=== PATIENT | female | born 1990 | race Caucasian/White ===

== ENCOUNTER 2019-05-16 10:48 | Emergency (ER) | payer OTHER ==
[2019-05-16 10:54] VITALS: BP 99/66; PULSE 74; TEMP 98.2; BMI 24.2
[2019-05-16] MEDS ORDERED: KETOROLAC TROMETHAMINE 60 MG/2 ML VIAL IM ONE (11:02)
[2019-05-16] MEDS ORDERED: METHOCARBAMOL 750 MG TABLET PO ONE (11:02)
[2019-05-16] MEDS ORDERED: LIDOCAINE 5% TOPICAL PATCH TP ONE (11:02)
[2019-05-16] MEDS ORDERED: KETOROLAC TROMETHAMINE 60 MG/2 ML VIAL ONE (11:05)
--- NOTE | 2019-05-16 11:09 | PDOC ---
History of Present Illness - General Chief Complaint: Back Pain Stated Complaint: BACK PAIN Time Seen by Provider: 05/16/19 10:54 History Source: Patient Exam Limitations: No Limitations Past History - Past Medical History Allergies/Adverse Reactions: Allergies Allergy/AdvReac Type Severity Reaction Status Date / Time No Known Allergies Allergy Verified 05/16/19 10:50 Home Medications: Ambulatory Orders Lidocaine 5% Patch [Lidoderm -] 1 patch TP DAILY #7 patch 05/16/19 Methocarbamol [Robaxin -] 1,500 mg PO Q6H PRN #24 tablet 05/16/19 Naproxen 500 mg PO BID 05/16/19 COPD: No - Immunization History Immunization Up to Date: Yes - Psycho Social/Smoking Cessation Hx Smoking History: Never smoked Information on smoking cessation initiated: No Hx Alcohol Use: No Drug/Substance Use Hx: No *Physical Exam - Vital Signs Last Vital Signs Temp Pulse Resp BP Pulse Ox 98.2 F 74 17 99/66 100 05/16/19 10:51 05/16/19 10:51 05/16/19 10:51 05/16/19 10:51 05/16/19 10:51 - Physical Exam General Appearance: No: Apparent Distress Respiratory/Chest: positive: Lungs Clear, Normal Breath Sounds. negative: Respiratory Distress Cardiovascular: positive: Regular Rhythm, Regular Rate, S1, S2. negative: Murmur Gastrointestinal/Abdominal: positive: Soft. negative: Tender Musculoskeletal: positive: Decreased Range of Motion (pain with movement of spine), Muscle Spasm (along R lumbar paraspinal muscles). negative: Vertebral Tenderness Neurologic: positive: Fully Oriented, Alert, Normal Mood/Affect, Motor Strength 5/5 Medical Decision Making - Medical Decision Making 28 y/o F with no sig pmh presents with nonradiating LBP x 5 days after bending down to pickup a heavy object. Saw her doctor 3 days ago and was prescribed Naprosyn, but states it has not been helping. Said she also had xray done of her back yesterday which showed ?pinched nerve. Patient also received cortisone injection to back yesterday. Denies fever, sob, cp, abd pain, n/v, urinary complaints, numbness/tingling/weakness of extremities. Denies prior back issues or back surgeries. Did not take any pain meds today. LNMP 3 weeks ago. Likely MSK pain with no evidence of sciatica Plan: Toradol, Robaxin, Lido patch 05/16/19 11:04 Discharge - Discharge Information Problems reviewed: Yes Clinical Impression/Diagnosis: Lower back pain Qualifiers: Chronicity: acute Back pain laterality: right Sciatica presence: without sciatica Qualified Code(s): M54.5 - Low back pain Condition: Improved Disposition: HOME - Admission No - Additional Discharge Information Prescriptions: Lidocaine 5% Patch [Lidoderm -] 1 patch TP DAILY #7 patch Methocarbamol [Robaxin -] 1,500 mg PO Q6H PRN #24 tablet PRN Reason: Muscle Spasms Prescription Drug Monitoring Program (I-STOP) results: I-STOP not reviewed - Follow up/Referral - Patient Discharge Instructions Patient Printed Discharge Instructions: DI for Low Back Pain Additional Instructions: Thank you for choosing [facility]. It was a pleasure taking care of you. You may take Motrin 600 mg every 6 hours by mouth as needed for mild to moderate pain. Take Motrin with food. Take Robaxin as needed for muscle spasms. This medication can also make you drowsy so please be cautious with driving or performing heavy physical work. Use lidocaine patch as directed Recommend warm compresses Continue follow-up with your doctor in 2-3 days Return to the Emergency Department if your symptoms worsen or persist, you have fever, shortness of breath, chest pain, severe abdominal pain, vomiting, weakness of extremities, unable to control bowel or bladder movements or other concerning symptoms. - Post Discharge Activity
[2019-05-16] MEDS ORDERED: LIDOCAINE 5% TOPICAL PATCH ONE (11:11)
== END 2019-05-16 12:19 | disposition home or self-care (01) ==
LOC: JERFT 10:48
PROC: 3E0233Z Introduction of Anti-inflammatory into Muscle, Percutaneous Approach (ICD-10-PCS; principal; 2019-05-16)
DX: M54.5 Low back pain (principal)
CPT/HCPCS: 99282-25

== ENCOUNTER 2021-01-02 18:30 | Emergency (ER) | payer OTHER ==
[2021-01-02 18:34] VITALS: BP 120/72; PULSE 71; TEMP 98; BMI 28.2
== END 2021-01-02 20:10 | disposition home or self-care (01) ==
LOC: JERFT 18:30
PROC: 0HQGXZZ Repair Left Hand Skin, External Approach (ICD-10-PCS; principal; 2021-01-02)
DX: O9A.213 Injury, poisoning and certain other consequences of external causes complicating pregnancy, third trimester (principal); S61.211A Laceration without foreign body of left index finger without damage to nail, initial encounter; W26.0XXA Contact with knife, initial encounter; Z3A.32 32 weeks gestation of pregnancy
CPT/HCPCS: 99282-25

== ENCOUNTER 2021-02-15 07:10 | Inpatient (IN) | payer OTHER ==
[2021-02-15 07:38] VITALS: BMI 28.8
[2021-02-15] MEDS ORDERED: PROMETHAZINE HCL 25 MG/1 ML VIAL IVPB ONE (08:02)
[2021-02-15] MEDS ORDERED: BUTORPHANOL TARTRATE 1 MG/ML VIAL IVPB PRN (08:02)
[2021-02-15] MEDS ORDERED: DINOPROSTONE 10 MG VAGINAL SUPPOSITORY VG ONE (08:05)
[2021-02-15] MEDS ORDERED: ELECTROLYTE-148 SOLN 1,000 ML IV SCH (08:15)
[2021-02-15 08:49] LABS: BASO % 0.2 % (0-2.0); EOS % 0.7 % (0-4.5); HEMATOCRIT 39.2 % (32.4-45.2); HEMOGLOBIN 13.3 GM/dL (10.7-15.3); LYMPH % 17.4 % (8-40); MCH 30.9 pg (25.7-33.7); MEAN PLT VOLUME 8.9 fl (7.5-11.1); MONO % 10.7 % (3.8-10.2); PLATELET COUNT 208 10^3/uL (134-434); RBC 4.31 M/mm3 (3.60-5.2); RDW 14.5 % (11.6-15.6); WHITE BLOOD COUNT 9.2 K/mm3 (4.0-10.0)
[2021-02-15 08:56] LABS: INR 0.97 (0.83-1.09); PROTHROMBIN TIME (PATIENT) 11.7 SEC (9.7-13.0)
[2021-02-15 08:59] LABS: ACTIVATED PTT 26.9 SECONDS (25.2-36.5)
[2021-02-15] MEDS ORDERED: PENICILLIN G POTASSIUM 5,000,000 (5Mm) UNIT VIAL IVPB ONE (09:06)
[2021-02-15 09:10] LABS: CALCIUM 8.8 mg/dL (8.5-10.1)
[2021-02-15 09:11] LABS: BLOOD UREA NITROGEN 8.1 mg/dL (7-18)
[2021-02-15 09:14] LABS: CREATININE 0.5 mg/dL (0.55-1.3)
[2021-02-15] MEDS ORDERED: PENICILLIN G POTASSIUM 5,000,000 (5Mm) UNIT VIAL IVPB SCH (09:15)
[2021-02-15] MEDS ORDERED: PENICILLIN G POTASSIUM 5,000,000 UNIT in DEXTROSE 5%-WATER - 250 ML IVPB ONE (09:15)
[2021-02-15] MEDS ORDERED: PENICILLIN G POTASSIUM 2,500,000 UNIT in DEXTROSE 5%-WATER - 250 ML IVPB SCH (13:30)
[2021-02-15] MEDS: PENICILLIN G POTASSIUM 2,500,000 UNIT in DEXTROSE 5%-WATER 100 ML IVPB SCH ×3 (13:55→23:43)
[2021-02-15] MEDS ORDERED: BUTORPHANOL TARTRATE 2 MG/ML VIAL ONE (15:06)
[2021-02-15] MEDS ORDERED: PROMETHAZINE HCL 25 MG/1 ML VIAL ONE (15:07)
[2021-02-15] MEDS ORDERED: FENTANYL/BUPIVACAINE/NS/PF - PCEA - 50 ML DISP.SYRIN EP ONE (18:59)
[2021-02-15] MEDS ORDERED: PCA PUMP NR ONE (18:59)
[2021-02-15] MEDS ORDERED: NALOXONE HCL 0.4 MG/ML VIAL IVPUSH PRN (19:39)
[2021-02-15] MEDS ORDERED: FENTANYL/BUPIVACAINE/NS/PF - PCEA - 50 ML DISP.SYRIN EP SCH (19:45)
[2021-02-15] MEDS ORDERED: LIDOCAINE HCL 1% PRESERVATIVE FREE - 30ML VIAL ONE (20:22)
[2021-02-15] MEDS ORDERED: OXYTOCIN 20 UNITS in 0.9% NS 20 UNIT/1,000 ML INFUS.BAG IV ONE ×2 (20:22→23:57)
[2021-02-15] MEDS ORDERED: OXYTOCIN 30 UNITS in 0.9% NS 30 UNIT/500 ML INFUS.BAG IVPB ONE (21:37)
[2021-02-15] MEDS ORDERED: BISACODYL 10 MG SUPP.RECT PR PRN (21:45)
[2021-02-15] MEDS ORDERED: WITCH HAZEL 50% (TUCKS) 40 PAD/JAR PAD TP PRN (21:45)
[2021-02-15] MEDS ORDERED: METHYLERGONOVINE MALEATE 0.2 MG/1 ML AMP IM PRN (21:45)
[2021-02-15] MEDS ORDERED: BENZOCAINE 28 GM HEMORRHOIDAL OINTMENT PR PRN (21:45)
[2021-02-15] MEDS ORDERED: BENZOCAINE 20% 57 GM BOTTLE TP PRN (21:45)
[2021-02-15] MEDS ORDERED: OXYTOCIN 20 UNITS in 0.9% NS 20 UNIT/1,000 ML INFUS.BAG IV SCH (22:00)
[2021-02-15] MEDS ORDERED: OXYTOCIN 30 UNITS in 0.9% NS 30 UNIT/500 ML INFUS.BAG IVPB SCH (22:00)
[2021-02-15] MEDS ORDERED: SENNOSIDES/DOCUSATE COMBO (SENNA PLUS) TABLET (UD) PO SCH (22:00)
[2021-02-15] MEDS: OXYTOCIN 20 UNITS in 0.9% NS 20 UNIT/1,000 ML INFUS.BAG IV SCH (22:18)
[2021-02-16] MEDS: OXYTOCIN 20 UNITS in 0.9% NS 20 UNIT/1,000 ML INFUS.BAG IV SCH ×2 (00:03→06:09)
[2021-02-16] MEDS: IBUPROFEN 600 MG TABLET (FP) PO PRN ×2 (04:56→22:46)
[2021-02-16] MEDS: ACETAMINOPHEN 325 MG TABLET (FP) PO PRN ×2 (04:56→22:46)
[2021-02-16 05:07] LABS: SARS-CoV-2 NAA Not Detected (Not Detected)
[2021-02-16 09:19] LABS: BASO % 0.4 % (0-2.0); EOS % 0.3 % (0-4.5); HEMATOCRIT 40.1 % (32.4-45.2); HEMOGLOBIN 13.6 GM/dL (10.7-15.3); LYMPH % 11.9 % (8-40); MCH 30.6 pg (25.7-33.7); MEAN CELL VOLUME 90.1 fl (80-96); MONO % 7.1 % (3.8-10.2); NEUT % 80.3 % (42.8-82.8); PLATELET COUNT 186 10^3/uL (134-434); RBC 4.45 M/mm3 (3.60-5.2); RDW 14.4 % (11.6-15.6); WHITE BLOOD COUNT 13.4 K/mm3 (4.0-10.0)
[2021-02-17] MEDS: ACETAMINOPHEN 325 MG TABLET (FP) PO PRN (08:21)
[2021-02-17] MEDS: IBUPROFEN 600 MG TABLET (FP) PO PRN (08:21)
[2021-02-17 10:40] VITALS: BP 104/66; PULSE 80; TEMP 98
== END 2021-02-17 12:30 | disposition home or self-care (01) | DRG 560 ==
LOC: JLDR 07:10 → J3W 02-16 00:05
PROVIDERS: ADMIT Obstetrics & Gynecology; ATTEND Obstetrics & Gynecology
PROC: 0HQ9XZZ Repair Perineum Skin, External Approach (ICD-10-PCS; principal; 2021-02-15)
PROC: 10E0XZZ Delivery of Products of Conception, External Approach (ICD-10-PCS; 2021-02-15)
DX: O69.81X0 Labor and delivery complicated by cord around neck, without compression, not applicable or unspecified (principal); O70.0 First degree perineal laceration during delivery; Z3A.39 39 weeks gestation of pregnancy; Z37.0 Single live birth
CPT/HCPCS: 36415; 59409; 80048; 85025; 85610; 85730; 86780; 86850; 86900; 86901; C9803; U0003; U0005

== ENCOUNTER 2021-04-14 03:20 | Inpatient (IN) | payer OTHER ==
[2021-04-14 03:40] VITALS: BMI 24.8
[2021-04-14] MEDS ORDERED: ACETAMINOPHEN 1000 MG/100 ML VIAL (NON FORMULARY) IVPB ONE (04:09)
[2021-04-14] MEDS ORDERED: ACETAMINOPHEN INJECTION 100 ML IVPB ONE (04:13)
[2021-04-14] MEDS ORDERED: LACTATED RINGERS SOLUTION 1000 ML INFUS.BAG IV ONE (04:18)
[2021-04-14 04:40] LABS: BASO % 0.3 % (0-2.0); EOS % 1.9 % (0-4.5); HEMOGLOBIN 13.9 GM/dL (10.7-15.3); LYMPH % 32.6 % (8-40); MCH 30.7 pg (25.7-33.7); MCHC 35.5 g/dl (32.0-36.0); MEAN CELL VOLUME 86.5 fl (80-96); MEAN PLT VOLUME 8.2 fl (7.5-11.1); MONO % 6.6 % (3.8-10.2); NEUT % 58.6 % (42.8-82.8); PLATELET COUNT 243 10^3/uL (134-434); RBC 4.51 M/mm3 (3.60-5.2); WHITE BLOOD COUNT 9.9 K/mm3 (4.0-10.0)
[2021-04-14 04:49] LABS: INR 0.92 (0.83-1.09); PROTHROMBIN TIME (PATIENT) 11.2 SEC (9.7-13.0)
[2021-04-14 04:51] LABS: ACTIVATED PTT 31.5 SECONDS (25.2-36.5)
[2021-04-14 05:30] LABS: CALCIUM 9.8 mg/dL (8.5-10.1)
[2021-04-14 05:31] LABS: ALBUMIN 4.3 g/dl (3.4-5.0)
[2021-04-14 05:34] LABS: CREATININE 0.7 mg/dL (0.55-1.3)
[2021-04-14 05:35] LABS: BILIRUBIN,TOTAL 0.8 mg/dL (0.2-1); TOT PROT 7.9 g/dl (6.4-8.2)
[2021-04-14] MEDS ORDERED: morphine CARPU-JECT 2 MG/1 ML DISP.SYRIN IVPUSH ONE (06:41)
[2021-04-14] MEDS ORDERED: MORPHINE SULFATE 2 MG/ML VIAL ONE (06:57)
[2021-04-14 08:15] LABS: URINE APPEARANCE CLEAR; URINE BILIRUBIN NEGATIVE (NEGATIVE); URINE COLOR YELLOW; URINE GLUCOSE (UA) NEGATIVE (NEGATIVE); URINE KETONE NEGATIVE (NEGATIVE); URINE LEUK ESTERASE NEGATIVE (NEGATIVE); URINE NITRITE NEGATIVE (NEGATIVE); URINE PROTEIN NEGATIVE (NEGATIVE); URINE UROBILINOGEN 0.2 mg/dL (0.2-1.0)
[2021-04-14] MEDS ORDERED: PIPERACILLIN/TAZOB 3.375 GM 3.375 GM in DEXTROSE 5%-WATER - 50 ML IVPB ONE (11:16)
[2021-04-14] MEDS ORDERED: PIPERACILLIN/TAZOB 3.375 GM 3.375 GM/50 ML BAG IVPB ONE (11:25)
[2021-04-14] MEDS ORDERED: DEXTROSE 5%-LACTATED RINGERS 1,000 ML IV SCH (11:30)
[2021-04-14] MEDS ORDERED: DEXTROSE 5%-NORMAL SALINE 1,000 ML IV SCH (12:00)
[2021-04-14] MEDS: HEPARIN NA (PORCINE) 5,000 UNITS/ML 1ML VIAL SQ SCH (21:57)
[2021-04-15 08:12] LABS: HEMATOCRIT 36.4 % (32.4-45.2); MCHC 35.7 g/dl (32.0-36.0); MEAN CELL VOLUME 86.8 fl (80-96); MEAN PLT VOLUME 8.4 fl (7.5-11.1); PLATELET COUNT 241 10^3/uL (134-434); RBC 4.19 M/mm3 (3.60-5.2); RDW 13.1 % (11.6-15.6); WHITE BLOOD COUNT 6.3 K/mm3 (4.0-10.0)
[2021-04-15] MEDS ORDERED: BUPIVACAINE HCL/PF 0.5% (5MG/ML) 10 ML VIAL ONE (08:23)
[2021-04-15 08:31] LABS: ALBUMIN 3.7 g/dl (3.4-5.0)
[2021-04-15 08:32] LABS: BLOOD UREA NITROGEN 14.5 mg/dL (7-18)
[2021-04-15 08:35] LABS: CREATININE 0.7 mg/dL (0.55-1.3)
[2021-04-15 08:36] LABS: BILIRUBIN,TOTAL 1.3 mg/dL (0.2-1); TOT PROT 6.6 g/dl (6.4-8.2)
[2021-04-15] MEDS ORDERED: LIDOCAINE HCL/PF 2% SDV 5ML VIAL ONE (08:58)
[2021-04-15] MEDS ORDERED: PROPOFOL 20 ML ONE ×2 (08:58→09:30)
[2021-04-15] MEDS ORDERED: ONDANSETRON 4 MG/2 ML VIAL ONE (08:58)
[2021-04-15] MEDS ORDERED: ROCURONIUM BROMIDE 100 MG/10 ML VIAL ONE (08:58)
[2021-04-15] MEDS ORDERED: MIDAZOLAM HCL 2 MG/2 ML SINGLE DOSE VIAL ONE (08:58)
[2021-04-15] MEDS ORDERED: DEXAMETHASONE SOD PHOSPHATE 4 MG/1 ML VIAL ONE (08:58)
[2021-04-15] MEDS ORDERED: ceFAZolin SODIUM 1 GM VIAL IVPB ONE (09:30)
[2021-04-15] MEDS: HEPARIN NA (PORCINE) 5,000 UNITS/ML 1ML VIAL SQ SCH ×2 (09:36→21:28)
[2021-04-15] MEDS ORDERED: ceFAZolin SODIUM 1 GM VIAL ONE (09:45)
[2021-04-15] MEDS ORDERED: GLYCOPYRROLATE 0.2 MG/1 ML VIAL ONE (10:29)
[2021-04-15] MEDS ORDERED: KETOROLAC TROMETHAMINE 30 MG/1 ML VIAL ONE (10:29)
[2021-04-15] MEDS ORDERED: NEOSTIGMINE METHYLSULFATE 0.5 MG/ML - 10 ML MDV ONE (10:29)
[2021-04-15] MEDS ORDERED: BUPIVACAINE HCL/PF 0.5% (5 MG/ML) 30 ML VIAL IJ ONE (10:32)
[2021-04-15] MEDS ORDERED: oxyCODONE HCL 5 MG TABLET PO PRN (10:52)
[2021-04-15] MEDS ORDERED: DEXTROSE 5%-NORMAL SALINE 1,000 ML IV SCH (11:01)
[2021-04-15] MEDS ORDERED: ACETAMINOPHEN INJECTION 100 ML IVPB ONE (11:06)
[2021-04-15] MEDS ORDERED: ACETAMINOPHEN 1000 MG/100 ML VIAL (NON FORMULARY) IVPB ONE (13:00)
[2021-04-15] MEDS ORDERED: ONDANSETRON 4 MG/2 ML VIAL IVPUSH PRN (13:10)
[2021-04-15] MEDS ORDERED: LACTATED RINGERS SOLUTION 1,000 ML IV SCH (13:15)
[2021-04-15] MEDS: ACETAMINOPHEN 325 MG TABLET (FP) PO SCH (17:40)
[2021-04-15] MEDS ORDERED: KETOROLAC TROMETHAMINE 15 MG/ML VIAL IVPUSH SCH (21:00)
[2021-04-15] MEDS ORDERED: MELATONIN 1 MG TABLET PO ONE (22:00)
[2021-04-16] MEDS: ACETAMINOPHEN 325 MG TABLET (FP) PO SCH ×3 (03:05→12:09)
[2021-04-16 08:18] LABS: BASO % 0.2 % (0-2.0); EOS % 0.8 % (0-4.5); HEMATOCRIT 34.8 % (32.4-45.2); HEMOGLOBIN 12.5 GM/dL (10.7-15.3); LYMPH % 34.1 % (8-40); MCH 31.3 pg (25.7-33.7); MCHC 36.1 g/dl (32.0-36.0); MEAN CELL VOLUME 86.9 fl (80-96); MEAN PLT VOLUME 8.5 fl (7.5-11.1); MONO % 6.9 % (3.8-10.2); PLATELET COUNT 269 10^3/uL (134-434); RDW 12.8 % (11.6-15.6); WHITE BLOOD COUNT 9.2 K/mm3 (4.0-10.0)
[2021-04-16 08:34] LABS: BLOOD UREA NITROGEN 10.8 mg/dL (7-18)
[2021-04-16 08:37] LABS: CREATININE 0.7 mg/dL (0.55-1.3)
[2021-04-16 08:39] LABS: ALBUMIN 3.6 g/dl (3.4-5.0)
[2021-04-16 08:42] LABS: BILIRUBIN,DIRECT 0.4 mg/dL (0.0-0.2)
[2021-04-16 08:44] LABS: BILIRUBIN,TOTAL 1.6 mg/dL (0.2-1); TOT PROT 6.6 g/dl (6.4-8.2)
[2021-04-16] MEDS: HEPARIN NA (PORCINE) 5,000 UNITS/ML 1ML VIAL SQ SCH (09:30)
[2021-04-16 11:20] VITALS: BP 104/67; PULSE 56; TEMP 98.2
== END 2021-04-16 13:18 | disposition home or self-care (01) | DRG 263 ==
LOC: JER 03:20 → JERBED 11:37 → J8W 17:51
PROVIDERS: ADMIT Family Medicine; ATTEND Family Medicine
PROC: 0FT44ZZ Resection of Gallbladder, Percutaneous Endoscopic Approach (ICD-10-PCS; principal; 2021-04-15 09:00)
DX: K80.00 Calculus of gallbladder with acute cholecystitis without obstruction (principal)
CPT/HCPCS: 36415; 71046-TC-FY; 74177-TC; 76705-TC; 76830-TC; 80048; 80053; 80076; 81003; 82550; 83690; 84484; 84703; 85025; 85027; 85610; 85730; 86850; 86900; 86901; 87077; 87086; 93005; 93010; 94760; 99285-25; C9803; J0131; J1644; Q9967; U0003; U0005

== ENCOUNTER 2023-03-06 00:14 | Emergency (ER) | payer OTHER ==
[2023-03-06 00:22] VITALS: BP 117/77; PULSE 78; RESP 16; TEMP 98; BMI 25.8
[2023-03-06] MEDS ORDERED: ONDANSETRON 4 MG/2 ML VIAL IVPUSH ONE (01:29)
[2023-03-06] MEDS ORDERED: FAMOTIDINE 20 MG/50 ML IVPB 20 MG/50 ML MG IVPB ONE ×2 (01:29→01:40)
[2023-03-06] MEDS ORDERED: ACETAMINOPHEN 1000 MG/100 ML BAG IVPB ONE (01:29)
[2023-03-06] MEDS ORDERED: ACETAMINOPHEN INJECTION 100 ML IVPB ONE (01:40)
[2023-03-06] MEDS ORDERED: ONDANSETRON 4 MG/2 ML VIAL ONE (01:40)
[2023-03-06 01:51] LABS: PH,URINE 7.5 (5.0-8.0); URINE APPEARANCE CLEAR; URINE BILIRUBIN NEGATIVE (NEGATIVE); URINE COLOR YELLOW; URINE GLUCOSE (UA) NEGATIVE (NEGATIVE); URINE KETONE NEGATIVE (NEGATIVE); URINE LEUK ESTERASE NEGATIVE (NEGATIVE); URINE NITRITE NEGATIVE (NEGATIVE); URINE PROTEIN NEGATIVE (NEGATIVE); URINE UROBILINOGEN 0.2 mg/dL (0.2-1.0)
[2023-03-06 02:09] LABS: BASO % 0.5 % (0-2.0); EOS % 1.7 % (0-4.5); HEMATOCRIT 40.2 % (32.4-45.2); HEMOGLOBIN 14.4 GM/dL (10.7-15.3); LYMPH % 36.7 % (8-40); MCH 31.2 pg (25.7-33.7); MCHC 35.9 g/dl (32.0-36.0); MEAN PLT VOLUME 8.9 fl (7.5-11.1); MONO % 9.1 % (3.8-10.2); PLATELET COUNT 274 10^3/uL (134-434); RBC 4.62 M/mm3 (3.60-5.2); RDW 12.8 % (11.6-15.6); WHITE BLOOD COUNT 9.6 K/mm3 (4.0-10.0)
[2023-03-06 02:27] LABS: POTASSIUM 4.1 mmol/L (3.5-5.1)
[2023-03-06 02:30] LABS: ALBUMIN 4.4 g/dl (3.4-5.0); BLOOD UREA NITROGEN 11.6 mg/dL (7-18); MAGNESIUM 1.8 mg/dL (1.8-2.4)
[2023-03-06 02:32] LABS: CREATININE 0.7 mg/dL (0.55-1.3)
[2023-03-06 02:34] LABS: BILIRUBIN,TOTAL 0.6 mg/dL (0.2-1); TOT PROT 7.9 g/dl (6.4-8.2)
== END 2023-03-06 03:09 | disposition home or self-care (01) ==
LOC: JER 00:14
PROC: 3E033GC Introduction of Other Therapeutic Substance into Peripheral Vein, Percutaneous Approach (ICD-10-PCS; principal; 2023-03-06)
PROC: 3E033NZ Introduction of Analgesics, Hypnotics, Sedatives into Peripheral Vein, Percutaneous Approach (ICD-10-PCS; 2023-03-06)
PROC: 3E033GC Introduction of Other Therapeutic Substance into Peripheral Vein, Percutaneous Approach (ICD-10-PCS; 2023-03-06)
DX: R10.13 Epigastric pain (principal); M54.50 Low back pain, unspecified; G89.29 Other chronic pain; R10.12 Left upper quadrant pain
CPT/HCPCS: 36415; 71045-TC-FY; 80053; 81003; 83690; 83735; 84484; 84703; 85025; 87086; 99284-25

== ENCOUNTER 2023-09-24 00:33 | Emergency (ER) | payer OTHER ==
[2023-09-24 00:44] VITALS: BP 102/66; PULSE 65; RESP 18; TEMP 98.7; BMI 25.9
[2023-09-24] MEDS ORDERED: predniSONE 20 MG TABLET (UD) ONE (00:56)
[2023-09-24] MEDS ORDERED: KETOROLAC TROMETHAMINE 60 MG/2 ML VIAL ONE (00:56)
[2023-09-24] MEDS ORDERED: LIDOCAINE 5% TOPICAL PATCH ONE (00:57)
[2023-09-24] MEDS: KETOROLAC TROMETHAMINE 60 MG/2 ML VIAL IM ONE (01:02)
[2023-09-24] MEDS: predniSONE 20 MG TABLET (UD) PO ONE (01:03)
[2023-09-24] MEDS: LIDOCAINE 5% TOPICAL PATCH TP ONE (01:03)
[2023-09-24] MEDS ORDERED: LIDOCAINE PATCH REMOVAL MC SCH (22:00)
== END 2023-09-24 02:47 | disposition home or self-care (01) ==
LOC: FER 00:33
PROC: 3E0233Z Introduction of Anti-inflammatory into Muscle, Percutaneous Approach (ICD-10-PCS; principal; 2023-09-24)
DX: M54.50 Low back pain, unspecified (principal)
CPT/HCPCS: 72100-TC-FY; 99284-25

== ENCOUNTER 2023-10-30 05:01 | Day surgery (SDC) | payer OTHER ==
[2023-10-25 15:13] VITALS: BMI 25.8
[2023-10-30] MEDS ORDERED: PROMETHAZINE HCL 25 MG/1 ML VIAL IVPB PRN (09:10)
[2023-10-30] MEDS ORDERED: ONDANSETRON 4 MG/2 ML VIAL IVPUSH PRN (09:10)
[2023-10-30] MEDS ORDERED: LACTATED RINGERS SOLUTION 1,000 ML IV SCH (09:15)
[2023-10-30] MEDS ORDERED: MIDAZOLAM HCL 2 MG/2 ML SINGLE DOSE VIAL ONE (09:29)
[2023-10-30] MEDS ORDERED: PROPOFOL 20 ML ONE (09:29)
[2023-10-30] MEDS ORDERED: FENTANYL CITRATE/PF 50 MCG/ML VIAL ONE ×2 (09:29→10:45)
[2023-10-30] MEDS ORDERED: LIDOCAINE HCL/PF 2% SDV 5ML VIAL ONE (09:30)
[2023-10-30] MEDS ORDERED: ceFAZolin SODIUM 1 GM VIAL ONE (09:46)
[2023-10-30] MEDS ORDERED: SODIUM CHLORIDE 0.9% P/F 10 ML VIAL IJ ONE (09:46)
[2023-10-30] MEDS: ceFAZolin SODIUM 1 GM VIAL IVPB ONE (09:51)
[2023-10-30] MEDS ORDERED: DEXAMETHASONE SOD PHOSPHATE 4 MG/1 ML VIAL ONE (09:54)
[2023-10-30] MEDS ORDERED: ACETAMINOPHEN INJECTION 100 ML IVPB ONE (09:56)
[2023-10-30] MEDS: oxyCODONE HCL 5 MG TABLET PO PRN (11:57)
[2023-10-30] MEDS ORDERED: oxyCODONE HCL 5 MG TABLET ONE (11:59)
[2023-10-30 12:11] VITALS: RESP 20
[2023-10-30 14:19] VITALS: BP 118/70; PULSE 72; TEMP 97.8
== END 2023-10-30 14:29 | disposition home or self-care (01) ==
LOC: JASU-SURG 05:01
PROVIDERS: ATTEND Obstetrics & Gynecology
PROC: 10D17ZZ Extraction of Products of Conception, Retained, Via Natural or Artificial Opening (ICD-10-PCS; principal; 2023-10-30 09:00)
DX: O02.1 Missed abortion (principal)
CPT/HCPCS: 88305-TC; 94760; J0131

== ENCOUNTER 2025-02-17 07:08 | Day surgery (SDC) | payer OTHER ==
[2025-02-13 14:28] VITALS: BMI 27.4
[2025-02-17] MEDS: PHENAZOPYRIDINE HCL 100 MG TABLET (FP) PO ONE (09:20)
[2025-02-17] MEDS ORDERED: PHENAZOPYRIDINE HCL 100 MG TABLET (FP) ONE (09:23)
[2025-02-17] MEDS ORDERED: LIDOCAINE HCL/PF 2% SDV 5ML VIAL ONE (09:35)
[2025-02-17] MEDS ORDERED: ROCURONIUM BROMIDE 50 MG/5 ML SYRINGE ONE (09:35)
[2025-02-17] MEDS ORDERED: PROPOFOL 20 ML ONE ×2 (09:35→12:23)
[2025-02-17] MEDS ORDERED: MIDAZOLAM HCL 2 MG/2 ML SINGLE DOSE VIAL ONE (09:36)
[2025-02-17] MEDS: ceFAZolin 2 GRAM PREMIX BAG IVPB ONE ×2 (10:58)
[2025-02-17] MEDS ORDERED: DEXAMETHASONE SOD PHOSPHATE 4 MG/1 ML VIAL ONE (11:04)
[2025-02-17] MEDS ORDERED: ONDANSETRON 4 MG/2 ML VIAL IVPUSH PRN (11:24)
[2025-02-17] MEDS ORDERED: PROMETHAZINE HCL 25 MG/1 ML VIAL IVPB PRN (11:24)
[2025-02-17] MEDS ORDERED: LACTATED RINGERS SOLUTION 1,000 ML IV SCH (11:30)
[2025-02-17] MEDS ORDERED: SUGAMMADEX SODIUM 200 MG/2 ML VIAL ONE (11:42)
[2025-02-17] MEDS ORDERED: KETOROLAC TROMETHAMINE 30 MG/1 ML VIAL ONE (11:42)
[2025-02-17] MEDS: ACETAMINOPHEN 1000 MG/100 ML BAG IVPB ONE (13:12)
[2025-02-17] MEDS: ACETAMINOPHEN INJECTION 100 ML ONE (13:13)
[2025-02-17 14:39] VITALS: RESP 20; TEMP 98.2
[2025-02-17 15:58] VITALS: BP 122/73; PULSE 97
== END 2025-02-17 17:03 | disposition home or self-care (01) ==
LOC: JASU-SURG 07:08
PROVIDERS: ATTEND Obstetrics & Gynecology
PROC: 8E0W4CZ Robotic Assisted Procedure of Trunk Region, Percutaneous Endoscopic Approach (ICD-10-PCS; 2025-02-17)
PROC: 0UT74ZZ Resection of Bilateral Fallopian Tubes, Percutaneous Endoscopic Approach (ICD-10-PCS; principal; 2025-02-17 10:15)
PROC: 8E0W4CZ Robotic Assisted Procedure of Trunk Region, Percutaneous Endoscopic Approach (ICD-10-PCS; 2025-02-17 10:15)
PROC: 0UB24ZZ Excision of Bilateral Ovaries, Percutaneous Endoscopic Approach (ICD-10-PCS; 2025-02-17 10:15)
DX: Z30.2 Encounter for sterilization (principal); N83.202 Unspecified ovarian cyst, left side; N83.201 Unspecified ovarian cyst, right side
CPT/HCPCS: 81025; 88305-TC; 94760